=== PATIENT | male | born 1995 | race Caucasian/White ===

== ENCOUNTER 2017-01-25 13:52 | Emergency (ER) | payer OTHER ==
[2017-01-25 14:04] VITALS: BP 144/101
[2017-01-25] MEDS ORDERED: ORPHENADRINE CITRATE 30 MG/ML VIAL IM ONE (14:11)
[2017-01-25] MEDS ORDERED: KETOROLAC TROMETHAMINE 60 MG/2 ML VIAL IM ONE ×2 (14:12→14:33)
--- NOTE | 2017-01-25 14:20 | ERNOTE ---
Upper Extremity HPI - Narrative Date of Service: 01/25/17 - General Extremities Pain Location: shoulder: left Time Seen by Provider: 01/25/17 14:04 Source: patient Exam Limitations: no limitations - Immun/Allergies/Home Medications Immunizations: IMMUNIZATION HX Immunizations Up to Date Yes History of Influenza Vaccine Yes Hx Pneumococcal Vaccination Yes Allergies/Adverse Reactions: Allergies Allergy/AdvReac Type Severity Reaction Status Date / Time Sulfa (Sulfonamide AdvReac Intermediate nausea, Verified 01/25/17 14:04 Antibiotics) vomitting [Sulfa(Sulfonamide Antibiotics)] Home Medications: HOME MEDICATIONS Lisdexamfetamine Dimesylate [Vyvanse] 60 mg PO DAILY 05/02/12 [Last Taken Unknown] Metoprolol Succinate [Toprol Xl] 100 mg PO DAILY 05/02/12 [Last Taken Unknown] Venlafaxine HCl [Effexor] 75 mg PO DAILY 12/03/14 [Last Taken 12/02/14] lamoTRIgine [Lamictal] 75 mg PO DAILY 12/03/14 [Last Taken Unknown] Cyclobenzaprine HCl [Flexeril] 10 mg PO TID PRN #30 tab 01/25/17 [Last Taken Unknown] Naproxen [Naprosyn] 500 mg PO BID PRN #60 tab 01/25/17 [Last Taken Unknown] - History of Present Illness Narrative: Pt. comes in with c/o L neck and shoulder pain for five days after he has been sleeping on a friends couch for a week. Pt. denies any SOB, CP, NVD, fever. Pt. reports cough to nurse but did not report that tho this provider and he is not coughing during exam. Pt. states that he took tylenol without relief of symptoms. Review of Systems - Review of Systems Constitutional: Present: no symptoms reported. Absent: recent illness, fever, chills, weakness, fatigue, malaise EYE: Present: no symptoms reported ENT: Present: no symptoms reported Respiratory: Present: no symptoms reported. Absent: shortness of breath, wheezing Cardiology: Present: no symptoms reported. Absent: chest pain, palpitations, edema Gastrointestinal/Abdominal: Present: no symptoms reported. Absent: nausea, vomiting, diarrhea Genitourinary: Present: no symptoms reported. Absent: frequency, decreased urinary output Musculoskeletal: Present: joint pain - L shoulder, L neck. Absent: back pain Skin: Present: no symptoms reported Neurological: Present: no symptoms reported. Absent: headache, dizziness/light- headedness, numbness, tingling All Other Systems: All systems neg except as marked - Patient's Past Medical History Patient History - Medical: Anxiety, Bipolar, Depression Patient History - Cardiac/Respiratory: Hypertension Patient History - Cancer: No Hx of Cancer Patient History - Surgical Procedures: T & A Patient History - Other: None - Social History Living Situations: home Abuse History: No History of abuse Psych History: Hx of Anxiety, Hx of Depression, Hx of Bipolar Disorder, Current tx/ever been on anti-depressants or anti-anxiety meds Does anyone smoke in the home?: Yes Smoking Status: Current some day smoker Alcohol Use: none Drug Use: none - Immunizations Immunizations Up to Date: Yes Hx Pneumococcal Vaccination: Yes History of Influenza Vaccine: Yes Physical Exam - Physical Exam General Appearance: Present: wd/wn, alert, no apparent distress Head Exam: Present: normal inspection, no evidence of injury Eye Exam: Normal inspection: bilateral, PERRL: bilateral, EOMI: bilateral Ears, Nose, Throat: Present: normal ENT inspection, normal pharynx Neck: Present: tender lateral - posterior trapesius L . Absent: lymphadenopathy (R), lymphadenopathy (L) Respiratory: Present: no respiratory distress, normal breath sounds, no accessory muscle use, chest nontender, lungs clear Cardiovascular/Chest: Present: regular rate, rhythm, no murmur, normal peripheral pulses Gastrointestinal/Abdominal: Present: normal bowel sounds, nontender, nondistended, soft, no organomegaly Back Exam: Present: normal inspection, normal range of motion, no CVA tenderness , no vertebral tenderness Extremity Exam: Present: normal range of motion, other - trapizius tenderness Neurological Exam: Present: alert, oriented, normal mood/affect, no motor/ sensory deficits Skin Exam: Present: normal color, warm/dry. Absent: pallor, skin rash ED Progress - Date and Time Seen: Date and Time: 01/25/17 14:16 trapezius pain reproducible with Lateral shoulder abduction rotation and turning his head to the R. - Vital Signs Patient's Vital Signs:: I have reviewed the patient's vital signs. Vital Signs: Vital Signs 01/25/17 13:59 Temperature 36.5 C Pulse Rate 84 Respiratory 16 Rate Blood Pressure 144/101 O2 Sat by Pulse 95 Oximetry - X-Ray X-Ray #1 X-Ray: shoulder Interpretation: Reviewed by me X-ray Comments: no obvious acute ossious abnormality - Progress/Reassessment Chief Complaint: Upper Extremity Injury/Problem Progress:: Improved Departure Clinical Impression: Trapezius muscle strain Qualifiers: Encounter type: initial encounter Laterality: left Qualified Code(s): S46.812A - Strain of other muscles, fascia and tendons at shoulder and upper arm level, left arm, initial encounter - Departure Disposition: Home self-care Condition: Good Instructions: Muscle Strain, [id number] Additional Instructions: Please follow up with ana garcia in 2-3 days. Referrals: Ana Garcia FNP [Primary Care Provider] - Prescriptions: Cyclobenzaprine HCl [Flexeril] 10 mg PO TID PRN #30 tab PRN Reason: MUSCLE SPASMS Naproxen [Naprosyn] 500 mg PO BID PRN #60 tab PRN Reason: Pain
[2017-01-25] MEDS ORDERED: ORPHENADRINE CITRATE 30 MG/ML VIAL ONE (14:33)
== END 2017-01-25 15:06 | disposition home or self-care (01) ==
LOC: ER 13:52
DX: S46.812A Strain of other muscles, fascia and tendons at shoulder and upper arm level, left arm, initial encounter (principal); F17.200 Nicotine dependence, unspecified, uncomplicated; F31.9 Bipolar disorder, unspecified; I10 Essential (primary) hypertension; F41.9 Anxiety disorder, unspecified; X50.1XXA Overexertion from prolonged static or awkward postures, initial encounter; Y93.89 Activity, other specified; Y92.89 Other specified places as the place of occurrence of the external cause